=== PATIENT | female | born 2000 ===

== ENCOUNTER 2019-02-19 20:30 | Outpatient (CLI) | payer BC | END 2019-02-19 20:31 | disposition home or self-care (01) | LOC: SLEEPLAB 20:30 | PROVIDERS: ATTEND Internal Medicine Critical Care Medicine | DX: G47.33 Obstructive sleep apnea (adult) (pediatric) (principal); G47.419 Narcolepsy without cataplexy; R53.83 Other fatigue; G47.10 Hypersomnia, unspecified | CPT/HCPCS: 95811 ==

== ENCOUNTER 2019-02-20 05:00 | Outpatient (CLI) | payer BC | END 2019-02-20 05:01 | disposition home or self-care (01) | LOC: SLEEPLAB 05:00 | PROVIDERS: ATTEND Internal Medicine Critical Care Medicine | DX: G47.33 Obstructive sleep apnea (adult) (pediatric) (principal); G47.419 Narcolepsy without cataplexy; R53.83 Other fatigue; G47.10 Hypersomnia, unspecified; G47.11 Idiopathic hypersomnia with long sleep time; Z72.821 Inadequate sleep hygiene | CPT/HCPCS: 95805 ==